=== PATIENT | female | born 1980 | race Caucasian/White ===

== ENCOUNTER → 2018-11-30 | Outpatient (CLI) | payer OTHER ==
[~2018-11-30] MED LIST: BACTRIM DS 8001 TA1 PO; MACROBID100 M1 PO; PRENATABS RX1 TAB PO; TORADOL10 MG PO; TYLENOL325 M1 PO; VICODIN 5/500 505 MG PO; ZOFRAN4 MG PO; Zofran4 MG
== END | disposition home or self-care (01) ==
LOC: CT 10:42
DX: K42.9 Umbilical hernia without obstruction or gangrene (principal); R10.9 Unspecified abdominal pain; R19.00 Intra-abdominal and pelvic swelling, mass and lump, unspecified site; Z90.49 Acquired absence of other specified parts of digestive tract

== ENCOUNTER → 2019-05-01 | Outpatient (CLI) | payer OTHER | END | disposition home or self-care (01) | LOC: US 12:41 | DX: N93.9 Abnormal uterine and vaginal bleeding, unspecified (principal); N92.6 Irregular menstruation, unspecified; Z98.51 Tubal ligation status ==

== ENCOUNTER → 2019-08-10 | Outpatient (CLI) | payer OTHER ==
[2019-08-10 09:21] LABS: BASO % 0.5 % (0.0-1.0); EOS # 0.1 10*3/uL (0.0-0.4); EOS % 1.5 % (1.0-4.0); HEMATOCRIT 43.3 % (37.0-47.0); LYMPH # 1.6 10*3/uL (1.3-4.4); LYMPH % 27.6 % (27.0-41.0); MEAN CELL VOLUME 86.1 fl (81.0-99.0); MEAN CORPUSCULAR HGB 27.4 pg (27.0-31.0); MEAN CORPUSCULAR HGB CONC 31.9 g/dl (33.0-37.0); MEAN PLATELET VOLUME 8.9 fl (9.6-12.3); MONO # 0.3 10*3/uL (0.1-1.0); MONO % 4.6 % (3.0-9.0); NEUT # 3.9 10*3/uL (2.3-7.9); NEUT % 65.6 % (47.0-73.0); PLATELET COUNT AUTOMATED 325 10*3/uL (130-400); RED BLOOD COUNT 5.03 10*6/uL (4.10-5.10); RED CELL DISTRI WIDTH 12.6 % (0-14.5); WHITE BLOOD COUNT 5.9 10*3/uL (4.8-10.8)
[2019-08-10 09:51] LABS: B-hCG (QUALITATIVE) NEGATIVE (NEGATIVE)
[2019-08-11 07:03] LABS: FOLLICLE STIMULATING HORMONE 29.7 mIU/mL (.); LUTEINIZING HORMONE 89.7 mIU/mL (.)
[2019-08-14 14:04] LABS: TESTOSTERONE FREE, (DIRECT) 2.3 pg/mL (0.0-4.2)
== END | disposition home or self-care (01) ==
LOC: LAB 08:57
PROVIDERS: Obstetrics & Gynecology
DX: N93.9 Abnormal uterine and vaginal bleeding, unspecified (principal)

== ENCOUNTER → 2019-08-16 | Outpatient (CLI) | payer OTHER | END | disposition home or self-care (01) | LOC: US 10:41 | DX: D25.2 Subserosal leiomyoma of uterus (principal) ==

== ENCOUNTER → 2019-09-26 | Outpatient (CLI) | payer OTHER | END | disposition home or self-care (01) | LOC: LAB 14:07 | DX: D64.9 Anemia, unspecified (principal); D25.9 Leiomyoma of uterus, unspecified; R93.89 Abnormal findings on diagnostic imaging of other specified body structures; Z20.828 Contact with and (suspected) exposure to other viral communicable diseases ==

== ENCOUNTER → 2019-10-02 | Day surgery (SDC) | payer OTHER ==
[2019-09-26 13:20] VITALS: BP 154/97
[~2019-10-02] VITALS: Ht 157.4 cm; Wt 102.1 kg
[~2019-10-02] MED LIST changes: +IBU800 MG PO
[2019-10-02 08:15] VITALS: BP 137/77
[2019-10-02 09:18] VITALS: BP 113/56
[2019-10-02 09:31] VITALS: BP 118/73
[2019-10-02 09:50] VITALS: BP 134/78
== END | disposition home or self-care (01) ==
LOC: SDC 09-26 13:15
DX: N93.9 Abnormal uterine and vaginal bleeding, unspecified (principal); D64.9 Anemia, unspecified; J45.909 Unspecified asthma, uncomplicated; F41.9 Anxiety disorder, unspecified; Z98.890 Other specified postprocedural states; Z79.899 Other long term (current) drug therapy

== ENCOUNTER → 2019-12-27 | Outpatient (CLI) | payer OTHER ==
[~2019-12-27] MED LIST changes: +AYGESTIN5 MG PO; +HYDROCODONE-AC1 EAC1 PO; +IBU800 M1 PO
== END | disposition home or self-care (01) ==
LOC: COVID19 00:26
PROVIDERS: ATTEND Obstetrics & Gynecology
DX: Z01.812 Encounter for preprocedural laboratory examination (principal); Z20.828 Contact with and (suspected) exposure to other viral communicable diseases

== ENCOUNTER 2020-01-01 00:44 | Inpatient (IN) | payer OTHER ==
[2019-12-27 13:40] VITALS: BP 177/96
[2020-01-01] VITALS (9 sets, daily range): BP systolic 131–160; BP diastolic 46–86
[~2020-01-01] VITALS: Ht 157.4 cm; Wt 108.7 kg
[~2020-01-01 00:44] MED LIST changes: -HYDROCODONE-AC1 EAC1 PO; -IBU800 M1 PO
--- NOTE | 2020-01-01 10:50 | NUR ---
A 39, admitted to , under the services of ROSANNA Ramirez DO with a diagnosis of S/P HESTERECTOMY. Chief complaint is BLEEDING. Patient arrived via ambulatory from [place]. Monitor applied FOR CONT. PULSE OX. Initial assessment completed. Vital signs taken and recorded. ROSANNA RAMIREZ DO notified of admission to the unit. Orders received. See assessment for past medical history, medications and allergies. Patient and/or family oriented to unit. [facility] visitation policy reviewed. Clothing/patient valuable form completed. 3 STAB SITES NOTED. DRY AND INTACT. NO DRAINAGE NOTED. [facility]SC[employer] P[employer]LETON
--- NOTE | 2020-01-01 14:00 | NUR ---
TOLERATED FULL LIQUID DIET. ADVANCED TO REGULAR DIET.
--- NOTE | 2020-01-01 20:00 | NUR ---
PATIENT AWAKE, RESTING IN BED. VOICES NO COMPLAINTS AT THIS TIME. RESPIRATIONS EASY, NON LABORED. VSS. SURGICAL SITES CLEAN AND INTACT. IV FLUIDS RUNNING, TEDS AND SCD MACHINE ON. BED IN LOWEST POSITION,CALL LIGHT WITHIN REACH. WILL CONTINUE TO MONITOR.
--- NOTE | 2020-01-01 22:38 | NUR ---
PATIENT C/O GAS PAINS. MEDICATED WITH MYLICON. WILL CHECK EFFECTIVNESS.
--- NOTE | 2020-01-01 23:00 | NUR ---
PATIENT C/O DISCOMFORT. PATIENT UP TO CHAIR WITH MINIMAL ASSISTANCE. WILL CONTINUE TO MONITOR.
[2020-01-02] VITALS: BP 142/65
--- NOTE | 2020-01-02 00:01 | NUR ---
PATIENT REMAINS IN CHAIR. IV SCHEDULED TORADOL GIVEN AT THIS TIME. PATIENT STATES SITTING IN THE CHAIR IS HELPING HER PAIN BUT THE PAIN IS A 7/10. WILL CONTINUE TO MONITOR. CALL LIGHT WITHIN REACH. WILL CONTINUE TO MONITOR.
--- NOTE | 2020-01-02 04:00 | NUR ---
PATIENT SITTING IN CHAIR RECLINING, SLEEPING. NO SIGNS OF DISTRESS. WILL CONTINUE TO MONITOR.
--- NOTE | 2020-01-02 06:00 | NUR ---
[place] REMOVED AT THIS TIME PER ORDER. PATIENT TOLERATED WELL. WILL CONTINUE TO MONITOR.
[2020-01-02 06:36] LABS: BASO % 0.1 % (0.0-1.0); HEMATOCRIT 43.2 % (37.0-47.0); LYMPH # 1.1 10*3/uL (1.3-4.4); LYMPH % 10.2 % (27.0-41.0); MEAN CELL VOLUME 81.2 fl (81.0-99.0); MEAN CORPUSCULAR HGB 24.8 pg (27.0-31.0); MEAN CORPUSCULAR HGB CONC 30.6 g/dl (33.0-37.0); MEAN PLATELET VOLUME 9.8 fl (9.6-12.3); MONO # 0.5 10*3/uL (0.1-1.0); MONO % 5.2 % (3.0-9.0); NEUT # 8.7 10*3/uL (2.3-7.9); NEUT % 84.1 % (47.0-73.0); PLATELET COUNT AUTOMATED 353 10*3/uL (130-400); RED BLOOD COUNT 5.32 10*6/uL (4.10-5.10); RED CELL DISTRI WIDTH 23.8 % (0-14.5); WHITE BLOOD COUNT 10.3 10*3/uL (4.8-10.8)
[2020-01-02] MEDS ORDERED: IBU800 M1 PO (08:04)
[2020-01-02] MEDS ORDERED: HYDROCODONE-AC1 EAC1 PO (08:04)
--- NOTE | 2020-01-02 08:45 | NUR ---
Discharge instructions reviewed with patient/family. Patient receptive and verbalizes understanding. Follow-up care arranged. Written instructions given to patient/family. BUD WARE
--- NOTE | 2020-01-02 09:10 | NUR ---
PT LEAVES FLOOR AT THIS TIME VIA W/C TO HUSBANDS CAR IN PARKING LOT.
== END 2020-01-02 09:10 | disposition home or self-care (01) | DRG 743 ==
LOC: SDC 00:44 → 5E 06:57 → SDC 07:30 → 5E 01-02 09:10
PROVIDERS: ADMIT Obstetrics & Gynecology; ATTEND Obstetrics & Gynecology
PROC: 0UT7FZZ Resection of Bilateral Fallopian Tubes, Via Natural or Artificial Opening With Percutaneous Endoscopic Assistance (ICD-10-PCS; principal; 2020-01-01)
PROC: 0UT9FZZ Resection of Uterus, Via Natural or Artificial Opening With Percutaneous Endoscopic Assistance (ICD-10-PCS; principal; 2020-01-01)
DX: D25.9 Leiomyoma of uterus, unspecified (principal); N85.01 Benign endometrial hyperplasia; N93.9 Abnormal uterine and vaginal bleeding, unspecified; Z79.899 Other long term (current) drug therapy

== ENCOUNTER 2022-09-13 12:00 | Emergency (ER) | payer OTHER ==
[~2022-09-13] VITALS: Wt 104.3 kg
[~2022-09-13 12:00] MED LIST changes: +HYDROCODONE-AC1 EAC1 PO; +IBU800 M1 PO
[2022-09-13] MEDS ORDERED: AMOX-CLAV 875-1 EACH PO (14:23)
== END 2022-09-13 16:02 | disposition home or self-care (01) ==
LOC: ED 12:00
DX: S51.811A Laceration without foreign body of right forearm, initial encounter (principal); Z88.8 Allergy status to other drugs, medicaments and biological substances; Z98.890 Other specified postprocedural states; Z98.51 Tubal ligation status; Z90.49 Acquired absence of other specified parts of digestive tract; W54.0XXA Bitten by dog, initial encounter; Y93.89 Activity, other specified; Y92.89 Other specified places as the place of occurrence of the external cause; Y99.8 Other external cause status